=== PATIENT | female | born 1965 | race Two or more races ===

== ENCOUNTER 2016-09-29 14:37 | Inpatient (IN) | payer MEDICAID ==
[~2016-09-29] VITALS: Ht 157.5 cm; Wt 64.0 kg
--- NOTE | 2016-09-29 14:37 | NUR ---
BIBRA 81 FOR ALTERED, OPNQQ=401.3, UB=427TH/DL. PLACED PT ON MONITOR. AWAITING MD ORDER
--- NOTE | 2016-09-29 15:09 | NUR ---
HAND BOBBIN CLEANER AT BEDSIDE
[2016-09-29] MEDS ORDERED: METF10002 PO (15:25)
[2016-09-29 16:13] LABS: BASOPHILS # (AUTO) 0.1 /CMM (0.0-0.2); BASOPHILS % (AUTO) 0.6 % (0.0-2.0); HEMATOCRIT 31 % (33-45); HEMOGLOBIN 10.3 g/dL (11.5-14.8); LYMPHOCYTES # (AUTO) 0.2 /CMM (0.8-4.8); LYMPHOCYTES % (AUTO) 1.7 % (20.0-44.0); MEAN CORPUSCULAR HEMOGLOBIN 29 PG (26.0-33.0); MEAN CORPUSCULAR HGB CONC 33 g/dl (31.0-36.0); MEAN CORPUSCULAR VOLUME 86 fL (82-100); MONOCYTES # (AUTO) 0.1 /CMM (0.1-1.30); MONOCYTES % (AUTO) 0.5 % (2.0-12.0); NEUTROPHILS # (AUTO) 11.4 /CMM (1.8-8.9); NEUTROPHILS % (AUTO) 97.2 % (43.0-81.0); PLATELET COUNT (AUTO) 170 /CMM (150-450); RDW COEFFICIENT OF VARIATION 13.8 (11.5-15.0); RED BLOOD CELL COUNT(AUTO) 3.63 MIL/uL (4.0-5.2); WHITE BLOOD COUNT (AUTO) 11.8 K/uL (4.3-11.0)
[2016-09-29 16:17] LABS: INR 1.03 (0.87-1.13); PROTHROMBIN TIME 10.7 SECS (9.5-12.7)
[2016-09-29 16:20] LABS: ALANINE AMINOTRANSFERASE 20 U/L (12-78); ALBUMIN 2.5 g/dL (3.4-5.0); ALKALINE PHOSPHATASE 134 U/L (46-116); ASPARTATE AMINOTRANSFERASE 21 U/L (15-37); BILIRUBIN,DIRECT 0.1 mg/dL (0.0-0.2); BILIRUBIN,TOTAL 0.4 mg/dL (0.2-1.0); CALCIUM, SERUM 8.9 mg/dL (8.5-10.1); CARBON DIOXIDE 23 mmol/L (21-32); CHLORIDE 95 mmol/L (98-107); CREATININE 0.8 mg/dL (0.6-1.3); POTASSIUM 3.8 mmol/L (3.5-5.1); SODIUM SERUM 129 mmol/L (136-145); TOTAL PROTEIN, SERUM 6.6 g/dL (6.4-8.2); UREA NITROGEN, BLOOD 11 mg/dL (7-18)
[2016-09-29 16:22] LABS: GLUCOSE 435 mg/dL (74-106)
[2016-09-29 16:23] LABS: TROPONIN I < 0.017 ng/mL (0.00-0.056)
--- NOTE | 2016-09-29 16:31 | NUR ---
URINE SAMPLE COLLECTED SENT TO LAB
[2016-09-29 17:10] LABS: BILIRUBIN,URINE Negative (NEGATIVE); BLOOD, URINE Negative Ery/uL (NEGATIVE); COLOR,URINE Yellow (YELLOW); KETONES,URINE 15 (NEGATIVE); LEUKOCYTE ESTERASE ,URINE Negative (NEGATIVE); NITRITE, URINE Negative (NEGATIVE); PROTEIN,URINE Negative (NEGATIVE); UGLUCOSE 500 MG/DL mg/dL (NEGATIVE); UROBILINOGEN,URINE 0.2 EU/dL (0.2)
[2016-09-29 17:13] LABS: APPEARANCE,URINE SLIGHTLY HAZY (CLEAR)
[2016-09-29 17:18] LABS: BACTERIA,URINE None seen /HPF (None Seen); RBC,URINE 0-2 /HPF (0-2); SQUAMOUS EPITHELIAL CELL,UR Few /HPF (None Seen); WBC,URINE 0-2 /HPF (0-3)
--- NOTE | 2016-09-29 17:26 | NUR ---
GAVE REPORT TO CHELSI AMBROCIO TELE ROOM [address] GALDAMEZ
--- NOTE | 2016-09-29 18:07 | NUR ---
TRANSFERRED PT TO ROOM 108
[2016-09-29 18:23] VITALS: BP 103/50
--- NOTE | 2016-09-29 18:24 | NUR ---
RN NOTES ADMITTED A 51Y/O F FROM ER WITH DX OF SEPSIS TRANSPORTED VIA STRETCHER ACCOMPANIED BY RN. PT IS AWAKE ALERT ORIENTED TO IMMEDIATE SURROUNDINGS, SWEDISH SPEAKING ONLY. NO ACUTE DISTRESS NOTED. ON RA JIM WELL. DENIES PAIN/DISCOMFORT AT THIS TIME . BODY CHECK DONE, NO MAJOR SKIN ISSUES NOTED. PT DENIES ANY SKIN PROBLEMS. VS TAKEN AND RECORDED. PT AFEBRILE. TELEBOX ATTACHED NOTED ST ON THE MONITOR. ORIENTED TO UNIT AND CALL LIGHT USE, SAFETY MAINTAINED, NEEDS ATTENDED. CALL LIGHT WITHIN REACH, WILL CONT TO MONITOR
[2016-09-29 20:00] VITALS: BP 94/54
[2016-09-29 20:30] VITALS: BP 94/54
--- NOTE | 2016-09-29 20:30 | NUR ---
NEUROSURGICAL NURSE NOTE RECEIVED PT IN BED A/O X 3, [place] SPEAKING. NO SOB, NO DISTRESS OR DISCOMFORT NOTED. DENIES PAIN. H/L IN RAC # [address]ENT[address] GALDAMEZ GAVE ADMITTING ORDERS, ORDERS NOTED AND CARRIED OUT. ON TELE ST HR 103. SKIN INTACT. ALL NEEDS ATTENDED. SIDE RAILS UP X 2 AND CALL LIGHT WITHIN REACH. PT AMBULATED WITH STEADY GAIT. VSS. CONTINUE TO MONITOR HER.
[2016-09-29 21:24] LABS: IRON, SERUM 54 ug/dl (50-175); TOTAL IRON BINDING CAPACITY 224 ug/dl (250-450)
--- NOTE | 2016-09-29 21:35 | NUR ---
FAVIAN AMBROCIO NOTE TYSON SOLANO INFORMED PT LACTIC ACID 2.8 AND PROCALCITONIN 39.56 Addendum: 09/29/16 at 2139 by WILMAN ARNOLD RN RUSS GAVE NEW ORDER TO INCREASE IVF NS TO 100 ML/HR.
[2016-09-30] VITALS: BP 91/52
[2016-09-30 04:00] VITALS: BP 97/59
[2016-09-30 06:34] LABS: BASOPHILS % (AUTO) 0.2 % (0.0-2.0); HEMATOCRIT 32 % (33-45); HEMOGLOBIN 10.5 g/dL (11.5-14.8); LYMPHOCYTES # (AUTO) 1.7 /CMM (0.8-4.8); LYMPHOCYTES % (AUTO) 10.3 % (20.0-44.0); MEAN CORPUSCULAR HEMOGLOBIN 28 PG (26.0-33.0); MEAN CORPUSCULAR HGB CONC 33 g/dl (31.0-36.0); MEAN CORPUSCULAR VOLUME 86 fL (82-100); MONOCYTES # (AUTO) 0.3 /CMM (0.1-1.30); MONOCYTES % (AUTO) 1.9 % (2.0-12.0); NEUTROPHILS # (AUTO) 14.7 /CMM (1.8-8.9); NEUTROPHILS % (AUTO) 87.6 % (43.0-81.0); PLATELET COUNT (AUTO) 147 /CMM (150-450); RDW COEFFICIENT OF VARIATION 14.7 (11.5-15.0); RED BLOOD CELL COUNT(AUTO) 3.73 MIL/uL (4.0-5.2); WHITE BLOOD COUNT (AUTO) 16.8 K/uL (4.3-11.0)
--- NOTE | 2016-09-30 06:38 | NUR ---
DRIVER'S EDUCATION INSTRUCTOR NOTE PT IN BED ASLEEP, AROUSABLE. NO DISTRESS OR DISCOMFORT NOTED. DENIES PAIN. IVF INFUSING WELL, NO S/S OF INFILTRATION NOTED. ON TELE SR 77. SIDE RAILS UP X 2 AND CALL LIGHT WITHIN REACH. WILL ENDORSE TO DAY SHIFT NURSE FOR CONTINUE TO CARE.
[2016-09-30 06:51] LABS: INR 1.02 (0.87-1.13); PROTHROMBIN TIME 10.9 SECS (9.5-12.7)
[2016-09-30 07:19] LABS: ALBUMIN 2.5 g/dL (3.4-5.0); BILIRUBIN,TOTAL 0.4 mg/dL (0.2-1.0); CALCIUM, SERUM 8.7 mg/dL (8.5-10.1); CREATININE 0.6 mg/dL (0.6-1.3); TOTAL PROTEIN, SERUM 6.8 g/dL (6.4-8.2)
--- NOTE | 2016-09-30 07:54 | NUR ---
TELE1/RN AM SHIFT INITIAL NOTES RECEIVED PT ASLEEP IN BED, AROUSEABLE, PT A/O X 4 SWEDISH SPEAKING, NO ACUTE CHANGE OF CONDITION OR FEVER, DENIES PAIN. ON ROOM AIR SATURATING @ 99%, LUNG SOUNDS CLEAR. ON TELE MONITORING, NOTED WITH SINUS RHYTHM, HR 76. ON GOING IV INFUSION OF NS @ 100CC/HR, IV SITE PATENT WITH NO S/S OF INFECTION. PT IS COMFORTABLE AT THIS TIME. CL WITHIN REACHED AND SAFETY MAINTAINED. ON GOING MONITORING.
[2016-09-30 08:00] VITALS: BP 104/54
[2016-09-30 08:05] LABS: BAND % (MANUAL) 15 % (0.0-5.0); LYMPHOCYTES % (MANUAL) 9 % (16-48); MONOCYTES % (MANUAL) 4 % (0-11.0); NEUTROPHILS % (MANUAL) 72 (42-76)
--- NOTE | 2016-09-30 11:36 | NUR ---
MS1/RN ROUNDS - DR. ZAMAN UPDATED PT'S CONDITION. PT SEEN & EXAMINED BY DR. ZAMAN. WITH VERBAL ORDERS RECEIVED TO START PT ON ACYCLOVIR 50MG DAILY PER PT'S REQUEST FOR HERPES AND DVT PROPHYLAXIS SCDs. ORDER NOTED AND CARRIED OUT.
--- NOTE | 2016-09-30 15:42 | NUR ---
MS1/RN AFTERNOON ROUNDS NO CHANGE OF CONDITION. MONITORING CONTINUED.
[2016-09-30 16:00] VITALS: BP 111/64
--- NOTE | 2016-09-30 19:25 | NUR ---
RN OPEN NOTES RECEIVED PATIENT AWAKE IN BED. A/O X4. NO SIGNS OF DISTRESS OR DISCOMFORT. BREATHING EVEN AND UNLABORED. IV ACCESS IN RAC, PATENT AND INTACT, NO SIGNS OF REDNESS OR INFILTRATION. BED IN LOW LOCKED POSITION WITH SIDE RAILS X2. CALL LIGHT WITHIN REACH. WILL CONTINUE TO MONITOR.
--- NOTE | 2016-09-30 19:46 | NUR ---
MS1/RN AM SHIFT END NOTES ALL NEEDS MET. NO ACUTE CHANGE OF CONDITION NOTED DURING THE SHIFT. PT ENDORSED TO PM NURSE TO CONTINUE CARE. CL WITHIN REACHED AND SAFETY MAINTAINED.
[2016-09-30 20:00] VITALS: BP 123/64
--- NOTE | 2016-09-30 20:05 | NUR ---
RN NOTES RECEIVED BLOOD CX RESULTS: GRAM POSITIVE COCCI IN CHAINS- ANAEROBIC TUBE, PER LAB. WILL INFORM MD AND CONTINUE TO MONITOR
--- NOTE | 2016-09-30 20:27 | NUR ---
RN NOTES DR. HOANG AWARE OF BLOOD CX RESULTS. NO NEW ORDERS GIVEN. WILL CONTINUE TO MONITOR.
[2016-10-01 04:00] VITALS: BP 122/60
--- NOTE | 2016-10-01 06:49 | NUR ---
RN CLOSING NOTES PATIENT AWAKE IN BED. A/O X4. NO SIGNS OF DISTRESS OR DISCOMFORT. BREATHING EVEN AND UNLABORED. IV ACCESS IN RAC, PATENT AND INTACT, NO SIGNS OF REDNESS OR INFILTRATION. ALL NEEDS MET. NO SIGNIFICANT CHANGES THROUGH THE NIGHT. BED IN LOW LOCKED POSITION WITH SIDE RAILS X2. CALL LIGHT WITHIN REACH. WILL ENDORSE TO AM SHIFT FOR COLLEEN.
[2016-10-01 08:00] VITALS: BP 132/68
--- NOTE | 2016-10-01 08:00 | NUR ---
RN INITIAL NOTES PT IS IN BED, A/Ox4, POLISH SPEAKING, NO COMPLAINTS OF PAIN. AFEBRILE, ROOM AIR, SATURATING WELL, NO RESPIRATORY DISTRESS NOTED. . AMBULATORY - BRP, SKIN INTACT, ON CCHO DIET. RAC IS FLUSHED AND PATENT, ON SL. WILL CONTINUE WITH ATB. ENCOURAGE PT WITH SELF CARE. SIDE RAIL UP, BED LOCKED AND IN LOWEST POSITION. CALL LIGHT WITHIN REACH.
[2016-10-01 08:10] LABS: *WEST NILE VIRUS, IgG, SERUM Positive (Negative)
[2016-10-01 10:21] LABS: *WEST NILE VIRUS, IgM, SERUM Negative (Negative)
--- NOTE | 2016-10-01 14:25 | NUR ---
PAGED DR ZAMAN TO REPORT CT SCAN RESULT AND BLOOD CULTURE TEST RESULT.
--- NOTE | 2016-10-01 15:02 | NUR ---
RECEIVED ORDER FROM DR ZAMAN, TO START [facility] TO DOSE 1MG/1KG, PT IS ASYMPTOMATIC, SITTING UP IN BED RESTING. PAGED DR MELÉNDEZ TO REGARDING BLOOD CX RESULT.
[2016-10-01 15:40] LABS: BASOPHILS % (AUTO) 0.1 % (0.0-2.0); EOSINOPHILS % (AUTO) 0.1 % (0.0-6.0); HEMATOCRIT 28 % (33-45); HEMOGLOBIN 9.2 g/dL (11.5-14.8); LYMPHOCYTES % (AUTO) 13.2 % (20.0-44.0); MEAN CORPUSCULAR HEMOGLOBIN 28 PG (26.0-33.0); MEAN CORPUSCULAR HGB CONC 33 g/dl (31.0-36.0); MEAN CORPUSCULAR VOLUME 86 fL (82-100); MONOCYTES # (AUTO) 0.3 /CMM (0.1-1.30); MONOCYTES % (AUTO) 3.7 % (2.0-12.0); NEUTROPHILS # (AUTO) 6.2 /CMM (1.8-8.9); NEUTROPHILS % (AUTO) 82.9 % (43.0-81.0); PLATELET COUNT (AUTO) 220 /CMM (150-450); RDW COEFFICIENT OF VARIATION 14.4 (11.5-15.0); RED BLOOD CELL COUNT(AUTO) 3.26 MIL/uL (4.0-5.2); WHITE BLOOD COUNT (AUTO) 7.5 K/uL (4.3-11.0)
[2016-10-01 15:56] LABS: CREATININE 0.5 mg/dL (0.6-1.3); POTASSIUM 3.8 mmol/L (3.5-5.1)
[2016-10-01 16:00] VITALS: BP 118/63
--- NOTE | 2016-10-01 18:31 | NUR ---
RN CLOSING NOTES NO SIGNIFICANT CHANGE OF CONDITION DURING AM SHIFT. PT STARTED ON LOVEN[facility], CT SCAN WITH CONTRAST RESULTED WITH POSSIBLE PE, PT IS ASYMPTOMATIC, NO RESPIRATORY DISTRESS NOTED. NO COMPLAINTS OF PAIN. CONTINUE ATB TX. AFEBRILE, ALL MEDS GIVEN ORDERED, PT TOLERATED IT WELL. [place] NO S/SX OF INFECTION/INFILTRATION. ALL SAFETY MEASURES MET, CALL LIGHTS WITHIN REACH WITH ENDORSED TO PM NURSE FOR CONTINUATION OF CARE.
--- NOTE | 2016-10-01 19:30 | NUR ---
RN NOTES RECEIVED PT AWAKE ALERT ORIENTED X 3 ABLE TO MAKE KNOWN NEEDS IN SOMALI LANGUAGE. RA SATING 98% NO C/O SOB.PT AMBULATE WELL. DENIES PAIN. IV SITE ON RAC G 20 NOTED WITH INFILTRATION SHOWS. REMOVED AND PLACED A NEW SITE ON LEFT HAND G 22 WITH GOOD BLOOD RETURN. WILL CONTINUE TO MONITOR FOR ANY S/SX. OF PE. WILL MONITORED CLOSELY.
[2016-10-01 20:00] VITALS: BP 119/60
[2016-10-02 04:00] VITALS: BP 125/68
--- NOTE | 2016-10-02 07:10 | NUR ---
RN NOTES REMAINED IN STABLE CONDITION. NO SIGNIFICANT CHANGES NOTED. AFEBRILE THROUGHOUT THE SHIFT. NO SOB NO S/S OF PE. ALL DUE MEDICINE TOLERATED WELL. ENDORSED CONTINUITY OF CARE TO AM NURSE.
[2016-10-02 08:00] VITALS: BP 132/69
[2016-10-02 09:36] LABS: CALCIUM, SERUM 8.6 mg/dL (8.5-10.1); CREATININE 0.5 mg/dL (0.6-1.3); POTASSIUM 3.8 mmol/L (3.5-5.1)
[2016-10-02 16:00] VITALS: BP 134/68
--- NOTE | 2016-10-02 17:55 | NUR ---
RN NOTE PT BLOOD SUGAR 413 MG/DL, COVERED BY 10 UNITS OF REGULAR INSULIN PER SLIDING SCALE. PT HAD A BIG MEAL BROUGHT IN BY A FRIEND VISITING HER ABOUT HOUR PRIOR BG CHECK. SINCE DR ZAMAN WAS NOT AVAILABLE, SPOKE WITH BRENDA CENTENO NP, HE STATED TO CHECK BG 1 HOUR AFTER AND FOLLOW UP WITH PRIMARY DOCTOR TO ADJUST SLIDING SCALE INSULIN. WILL CONTINUE TO MONITOR PT.
[2016-10-02 20:00] VITALS: BP 107/57
[2016-10-03 04:00] VITALS: BP 135/60
--- NOTE | 2016-10-03 07:36 | NUR ---
RN INITIAL NOTES PT IS IN SITTING UP IN CHAIR, A/Ox4, [place] SPEAKING, NO COMPLAINTS OF PAIN, AFEBRILE. NO RESPIRATORY DISTRESS NOTED, ON ROOM AIR, SATURATING WELL, NO RESPIRATORY DISTRESS NOTED. AD LOREN WITH BRP, SKIN INTACT, ON CCHO DIET WITH ACCU CHECK ACHS. LEFT HAND #22 IS FLUSHED AND PATENT, ON SL. ENCOURAGE PT WITH SELF CARE. SIDE RAIL UP, BED LOCKED AND IN LOWEST POSITION. CALL LIGHT WITHIN REACH
[2016-10-03 08:00] VITALS: BP 124/74
[2016-10-03 08:08] LABS: CALCIUM, SERUM 8.6 mg/dL (8.5-10.1); CREATININE 0.6 mg/dL (0.6-1.3); POTASSIUM 4.1 mmol/L (3.5-5.1)
[2016-10-03 16:00] VITALS: BP 141/60
--- NOTE | 2016-10-03 18:49 | NUR ---
RN CLOSING NOTES NO SIGNIFICANT CHANGES DURING AM SHIFT. COLLECTED URINE SAMPLE FOR URINE CULTURE. NO FEVER, NO S/S OF RESPIRATORY DISTRESS NOTED. PT IS INDEPENDENT AD LOREN, ENCOURAGE PT OF SELF CARE. L HAND IV SITE IS PATENT, NO S/SX OF INFECTION/INFILTRATION. SKIN INTACT, PULMO CONSULT DONE WITH DR DUMONT. WILL DO LE VENOUS DOPPLER, AND VASU LEVEL. ALL MEDS GIVEN ORDERED, PT TOLERATED IT WELL. WILL ENDORSED TO PM NURSE FOR CONTINUATION OF CARE.
[2016-10-03 20:00] VITALS: BP_SYST 128; BP_DIAS 68; BP_DIAS 70
--- NOTE | 2016-10-03 20:00 | NUR ---
ms rn notes received pts on bed a/ox4 tunisian speaking , no sob no distress noted v/s stable afebrile, all needs attended too all due meds given as ordered call light within reach , kept pts clean dry and comfortable.
--- NOTE | 2016-10-03 21:53 | NUR ---
ms rn notes blood sugar for 10pm is 312mg/dl -8 units of regular insulin . given per sliding scale pts on po diet. will check blood sugar again in am.
[2016-10-04 04:00] VITALS: BP 128/68
[2016-10-04 06:43] LABS: EOSINOPHILS % (AUTO) 0.1 % (0.0-6.0); HEMATOCRIT 31 % (33-45); HEMOGLOBIN 10.2 g/dL (11.5-14.8); LYMPHOCYTES # (AUTO) 1.4 /CMM (0.8-4.8); LYMPHOCYTES % (AUTO) 19.3 % (20.0-44.0); MEAN CORPUSCULAR HEMOGLOBIN 29 PG (26.0-33.0); MEAN CORPUSCULAR HGB CONC 33 g/dl (31.0-36.0); MEAN CORPUSCULAR VOLUME 87 fL (82-100); MONOCYTES # (AUTO) 0.4 /CMM (0.1-1.30); MONOCYTES % (AUTO) 4.9 % (2.0-12.0); NEUTROPHILS # (AUTO) 5.7 /CMM (1.8-8.9); NEUTROPHILS % (AUTO) 75.7 % (43.0-81.0); PLATELET COUNT (AUTO) 329 /CMM (150-450); RDW COEFFICIENT OF VARIATION 14.7 (11.5-15.0); RED BLOOD CELL COUNT(AUTO) 3.54 MIL/uL (4.0-5.2); WHITE BLOOD COUNT (AUTO) 7.5 K/uL (4.3-11.0)
[2016-10-04 07:04] LABS: CALCIUM, SERUM 8.8 mg/dL (8.5-10.1); CREATININE 0.5 mg/dL (0.6-1.3); POTASSIUM 4.3 mmol/L (3.5-5.1)
--- NOTE | 2016-10-04 07:15 | NUR ---
RN INITIAL NOTES: REC'D PT AWAKE ON SITTING ON BEDSIDE CHAIR, NOT IN ANY FORM OF DISTRESS, A/O X4, DENIES ANY PAIN/ DISCOMFORT, ABLE TO MAKE NEEDS KNOWN, EMIRATI SPEAKING. HAS L HAND G22, SL, FLUSHED, PATENT & INTACT W/ NO S/SX OF INFECTION/ INFILTRATION. PROVIDED COMFORT & SAFETY MEASURES. BED KEPT LOW & IN LOCKED POS. WILL CONTINUE TO MONITOR.
[2016-10-04 08:00] VITALS: BP 134/72
--- NOTE | 2016-10-04 12:30 | NUR ---
RN NOTES: PT SEEN & EXAMINED BY DR. LINARES.
[2016-10-04 16:00] VITALS: BP 120/54
--- NOTE | 2016-10-04 18:38 | NUR ---
RN CLOSING NOTES: NO ACUTE CHANGES NOTED W/IN SHIFT. L HAND G22, SL, KEPT PATENT & INTACT W/ NO S/SX OF INFECTION/ INFILTRATION. KEPT WELL RESTED. NEEDS ATTENDED. CALL LIGHT PLACED W/IN REACH. BED KEPT LOW & IN LOCKED POS. WILL ENDORSE TO PM RN FOR COLLEEN.
[2016-10-04 20:00] VITALS: BP 115/59
[2016-10-05 04:00] VITALS: BP 125/65
[2016-10-05 06:23] LABS: BASOPHILS % (AUTO) 0.4 % (0.0-2.0); EOSINOPHILS % (AUTO) 0.3 % (0.0-6.0); HEMATOCRIT 33 % (33-45); HEMOGLOBIN 10.8 g/dL (11.5-14.8); LYMPHOCYTES # (AUTO) 1.2 /CMM (0.8-4.8); LYMPHOCYTES % (AUTO) 19.1 % (20.0-44.0); MEAN CORPUSCULAR HEMOGLOBIN 29 PG (26.0-33.0); MEAN CORPUSCULAR HGB CONC 33 g/dl (31.0-36.0); MEAN CORPUSCULAR VOLUME 87 fL (82-100); MONOCYTES # (AUTO) 0.3 /CMM (0.1-1.30); MONOCYTES % (AUTO) 5.3 % (2.0-12.0); NEUTROPHILS # (AUTO) 4.7 /CMM (1.8-8.9); NEUTROPHILS % (AUTO) 74.9 % (43.0-81.0); PLATELET COUNT (AUTO) 327 /CMM (150-450); RED BLOOD CELL COUNT(AUTO) 3.79 MIL/uL (4.0-5.2); WHITE BLOOD COUNT (AUTO) 6.3 K/uL (4.3-11.0)
[2016-10-05 06:41] LABS: CALCIUM, SERUM 9.2 mg/dL (8.5-10.1); CREATININE 0.5 mg/dL (0.6-1.3); POTASSIUM 4.6 mmol/L (3.5-5.1)
[2016-10-05 08:00] VITALS: BP 106/59
--- NOTE | 2016-10-05 08:00 | NUR ---
MS1/RN AM SHIFT INITIAL NOTE RECEIVED PT SITTING AWAKE IN BED. PT A/O X 4, DENIES ANY SYMPTOMS OR PAIN. NO ACUTE CHANGE OF CONDITION NOTED. PT ON ROOM AIR SATURATING WELL. IV SITE FLUSHED, PATENT WITH NO S/S OF INFECTION, SL. BS CHECKED, RESULT 318, TO BE GIVEN 8 UNITS OF REGULAR INSULIN SC, NO S/S OF HYPERGLYCEMIA. PT IS COMFORTABLE AT THIS TIME. SCHEDULED AM MEDS TO BE GIVEN. CL WITHIN REACHED AND SAFETY MAINTAINED. ON GOING MONITORING.
[2016-10-05 09:55] VITALS: BP 106/59
--- NOTE | 2016-10-05 12:00 | NUR ---
MS1/RN NOON ROUNDS NO CHANGE OF CONDITION. MONITORING CONTINUED.
[2016-10-05 16:00] VITALS: BP 100/60
--- NOTE | 2016-10-05 17:30 | NUR ---
MS1/RN AFTERNOON ROUNDS NO CHANGE OF CONDITION. MONITORING CONTINUED.
--- NOTE | 2016-10-05 19:35 | NUR ---
MS1/RN AM SHIFT END NOTES NO ACUTE CHANGE OF CONDITION NOTED DURING THE SHIFT. ALL NEEDS MET. PT ENDORSED TO PM NURSE TO CONTINUE CARE. CL WITHIN REACHED, SAFETY MAINTAINED AND ISOLATION OBSERVED.
[2016-10-05 20:00] VITALS: BP 134/61
--- NOTE | 2016-10-06 02:42 | NUR ---
RN MS NOTE TOOK OVER CARE OF PT FROM LOLLY CASTANO. PT RECEIVED IN NO ACUTE DISTRESS. WILL CONTINUE TO ENSURE SAFETY/COMFORT MEASURES AND MONITOR FOR ANY CHANGES.
[2016-10-06 04:00] VITALS: BP 114/62
[2016-10-06 06:50] LABS: CALCIUM, SERUM 9.3 mg/dL (8.5-10.1); CREATININE 0.5 mg/dL (0.6-1.3); POTASSIUM 4.1 mmol/L (3.5-5.1)
--- NOTE | 2016-10-06 07:30 | NUR ---
MS/RN: PT RECEIVED, EYES CLOSED, IN BED, A&OX4, BREATHING EVEN AND UNLABORED, NO DISTRESS NOTED. DENIES PAIN AND DISCOMFORT. REAPPLIED DVT PUMP, EDUCATED PT ON POC. WILL CONT TO MONITOR PT
[2016-10-06 07:42] LABS: BASOPHILS % (AUTO) 0.2 % (0.0-2.0); EOSINOPHILS % (AUTO) 0.1 % (0.0-6.0); HEMATOCRIT 33 % (33-45); HEMOGLOBIN 10.9 g/dL (11.5-14.8); LYMPHOCYTES # (AUTO) 1.6 /CMM (0.8-4.8); LYMPHOCYTES % (AUTO) 25.5 % (20.0-44.0); MEAN CORPUSCULAR HEMOGLOBIN 28 PG (26.0-33.0); MEAN CORPUSCULAR HGB CONC 33 g/dl (31.0-36.0); MEAN CORPUSCULAR VOLUME 86 fL (82-100); MONOCYTES # (AUTO) 0.3 /CMM (0.1-1.30); NEUTROPHILS # (AUTO) 4.3 /CMM (1.8-8.9); NEUTROPHILS % (AUTO) 69.2 % (43.0-81.0); PLATELET COUNT (AUTO) 302 /CMM (150-450); RED BLOOD CELL COUNT(AUTO) 3.87 MIL/uL (4.0-5.2); WHITE BLOOD COUNT (AUTO) 6.3 K/uL (4.3-11.0)
[2016-10-06 08:00] VITALS: BP 107/79
--- NOTE | 2016-10-06 09:00 | NUR ---
MS/RN: DR RAMIREZ ROUNDS; INFORMED OF SUSPECTED SEPTIC EMBOLI VS SBE, ID RECOMMENDATIONS FOR REPEAT ECHO VS BRIDGER. PER MD "YES, I WAS INFORMED, I WILL TAKE A LOOK AT HER CHART."
[2016-10-06 16:00] VITALS: BP 140/64
--- NOTE | 2016-10-06 19:25 | NUR ---
RN MS OPENING NOTE PT RECEIVED IN NO ACUTE DISTRESS. PT IS A/O X4 BHUTANESE SPEAKING ON RA WITH ADEQUATE 02 SATURATION. PT HAS A RIGHT HAND 22 G THAT IS CLEAN DRY AND PATENT. PT IS ABLE TO WALK TO THE BATHROOM AND HAS FAMILY MEMBER AT BEDSIDE. COMFORT AND SAFETY MEASURES TO BE ENSURED DURING THE SHIFT. WILL CONTINUE TO MONITOR FOR CHANGES.
[2016-10-06 20:00] VITALS: BP 127/60
[2016-10-07 04:00] VITALS: BP 126/69
--- NOTE | 2016-10-07 06:13 | NUR ---
RN MS CLOSING NOTE PT REMAINS IN NO ACUTE DISTRESS SLEEPING COMFORTABLY. PT COMPLAINED OF CHEST PAIN EARLY IN SHIFT AND RECEIVED MORPHINE IVP. ALL DUE MEDICATIONS TOLERATED WELL. COMFORT AND SAFETY MEASURES WERE ENSURED DURING THE SHIFT. WILL ENDORSE CARE TO AM NURSE.
[2016-10-07 06:40] LABS: CREATININE 0.5 mg/dL (0.6-1.3)
[2016-10-07 06:59] LABS: POTASSIUM 4.2 mmol/L (3.5-5.1)
--- NOTE | 2016-10-07 07:50 | NUR ---
MS RN NOTE PT RECEIVED IN NO ACUTE DISTRESS. PT IS A/O X4 GREENLANDIC SPEAKING ON RA WITH ADEQUATE 02 SATURATION. PT HAS A RIGHT HAND 22 G THAT IS CLEAN DRY AND PATENT. PT IS ABLE TO WALK TO THE BATHROOM AND HAS FAMILY AT BEDSIDE. COMFORT AND SAFETY MEASURES TO BE ENSURED DURING THE SHIFT. WILL CONTINUE TO MONITOR FOR CHANGES. NO SOB NOTED , BED IN LOWEST AND LOCKED POSITION , PLAN OF CARE DISCUSSED WITH PATIENT , CALL LIGHT WITHIN REACH
[2016-10-07 08:00] VITALS: BP 110/64
--- NOTE | 2016-10-07 12:47 | NUR ---
ms rn note per dr joe dougherty to insert mid line , john ji at bedside inserted nyla 18 mid line on rt upper arm
--- NOTE | 2016-10-07 15:29 | NUR ---
MS RN NOTE ADWOA RADIOLOGIST CHIEF OF BREAST IMAGING AWARE THAT PATIENT NEED HOME HEALTH TO DO IV ATB AT HOME , STILL WORKING ON CASE , PATIENT NOTIFIED
[2016-10-07 16:00] VITALS: BP 132/55
--- NOTE | 2016-10-07 17:56 | NUR ---
MS RN NOTE PER IMPLEMENTATION ANALYST [place] TO DO LAST DOSE TODAY OF ATB AT 1999 AND DISCHARGE HOME TODAY ASSISTED HOME HEALTH [phone] WILL DO IV ATB , ALSO [facility] WILL BRING MEDS TOMORROW
--- NOTE | 2016-10-07 18:38 | NUR ---
POOLING OPERATOR NOTE PATIENT WILL BE DISCHARGE HOME AFTER 1999
--- NOTE | 2016-10-07 19:15 | NUR ---
MS 1 RN NOTES RECEIVED RESTING COMFORTABLY ON BED,A/O 3-4,AWAITING FOR IV ABX TO INFUSED THEN WILL D/C TO HOME.ALL PAPER WORKS ALREADY SIGNED.CALL LIGHT IN REACH,NEEDS ANTICIPATED.
[2016-10-07 20:00] VITALS: BP 123/61
--- NOTE | 2016-10-07 20:15 | NUR ---
MS 1 RN NOTES DUE ROCEPHIN 1GM IVPB HUNG AND INFUSED,NO ADVERSE SIDE EFFECT NOTED
--- NOTE | 2016-10-07 20:38 | NUR ---
MS 1 RN NOTES DISCHARGE INSTRUCTION GIVEN WITH BALLAST CLEANING OPERATOR,UNDERSTAND DISCHARGE INSTRUCTION.ACCOMPANIED BY FRIEND TO HOME WITH OWN TRANSPORTATION,MID LINE KEPT ON FOR HOME IV ABX.IN STABLE CONDITION
--- NOTE | 2016-10-07 20:45 | NUR ---
MS1 RN NOTES D/C HOME ACCOMPANIED BY FRIEND NAME CORTNEY CAVAZOS,IN STABLE CONDITION.
== END 2016-10-07 20:45 | disposition home health service (06) | DRG 193 ==
LOC: ER 14:40 → TELE1 17:31 → MEDSG1 09-30 10:57
PROVIDERS: ADMIT Internal Medicine; ATTEND Internal Medicine
PROC: 05H533Z Insertion of Infusion Device into Right Subclavian Vein, Percutaneous Approach (ICD-10-PCS; principal; 2016-10-07)
DX: I33.0 Acute and subacute infective endocarditis (principal); I26.99 Other pulmonary embolism without acute cor pulmonale; G92 Toxic encephalopathy; J90 Pleural effusion, not elsewhere classified; R78.81 Bacteremia; E11.65 Type 2 diabetes mellitus with hyperglycemia; I10 Essential (primary) hypertension; E78.5 Hyperlipidemia, unspecified; D63.8 Anemia in other chronic diseases classified elsewhere; K52.9 Noninfective gastroenteritis and colitis, unspecified; B00.1 Herpesviral vesicular dermatitis; A60.1 Herpesviral infection of perianal skin and rectum; N39.0 Urinary tract infection, site not specified; I27.2 Other secondary pulmonary hypertension; R59.0 Localized enlarged lymph nodes; B95.4 Other streptococcus as the cause of diseases classified elsewhere; R91.8 Other nonspecific abnormal finding of lung field; K57.30 Diverticulosis of large intestine without perforation or abscess without bleeding
CPT/HCPCS: 36415; 36569; 71010-TC; 71260-TC; 80048-TC; 80053-TC; 80076-TC; 81000-TC; 82272-TC; 82553-TC; 82962-TC; 83540-TC; 83605-TC; 84484-TC; 85025-TC; 85610-TC; 85730-TC; 86788; 86789; 87040-TC; 87081-TC; 87086-TC; 87186-TC; 93307-TC; 93970-TC; A4606; A6402; J0696; J1650; J1815; J2270; J2543; J3370; J7030; J7050; J7060; Q9967; Z7610

== ENCOUNTER 2016-10-23 22:16 | Emergency (ER) | payer MEDICAID ==
[~2016-10-23] VITALS: Ht 162.6 cm; Wt 74.8 kg
[~2016-10-23 22:16] MED LIST: METF10002 PO
[2016-10-23 22:53] VITALS: BP 165/78
[2016-10-23 22:55] LABS: APPEARANCE,URINE CLEAR (CLEAR); BILIRUBIN,URINE NEGATIVE (NEGATIVE); BLOOD, URINE NEGATIVE Ery/uL (NEGATIVE); COLOR,URINE YELLOW (YELLOW); KETONES,URINE NEGATIVE (NEGATIVE); LEUKOCYTE ESTERASE ,URINE NEGATIVE (NEGATIVE); NITRITE, URINE NEGATIVE (NEGATIVE); PH,URINE 6.5 (5.0-8.0); PROTEIN,URINE NEGATIVE (NEGATIVE); UGLUCOSE 3+ mg/dL (NEGATIVE); UROBILINOGEN,URINE 0.2 EU/dL (0.2)
[2016-10-23 23:15] LABS: BACTERIA,URINE Rare /HPF (None Seen); PREGNANCY TEST URINE QUAL NEGATIVE (NEGATIVE); RBC,URINE NONE SEEN /HPF (0-2); SQUAMOUS EPITHELIAL CELL,UR Moderate /HPF (None Seen); WBC,URINE 0-2 /HPF (0-3); YEAST,URINE Moderate /HPF (None Seen)
--- NOTE | 2016-10-24 00:30 | NUR ---
infused rocephin 1g to picc line via ivpb. no adr noted. vss.
== END 2016-10-24 00:32 | disposition home or self-care (01) ==
LOC: ER 22:18
DX: R31.9 Hematuria, unspecified (principal); I10 Essential (primary) hypertension; Z79.2 Long term (current) use of antibiotics; E11.9 Type 2 diabetes mellitus without complications
CPT/HCPCS: 81001; 82962; 84703; 87086; 96365; 99284; A4606; J0696; J7060; Z7610; 81000-TC

== ENCOUNTER 2016-10-30 19:54 | Emergency (ER) | payer MEDICAID ==
[~2016-10-30] VITALS: Ht 162.6 cm; Wt 68.0 kg
[2016-10-30 20:47] VITALS: BP 147/88
== END 2016-10-30 21:24 | disposition left against medical advice (07) ==
LOC: ER 20:03
DX: Z53.21 Procedure and treatment not carried out due to patient leaving prior to being seen by health care provider (principal)
CPT/HCPCS: A4606; Z7610

== ENCOUNTER 2016-12-29 12:05 | Emergency (ER) | payer SELFPAY ==
[~2016-12-29] VITALS: Ht 167.6 cm; Wt 65.8 kg
[2016-12-29 12:36] VITALS: BP 160/70
--- NOTE | 2016-12-29 12:36 | NUR ---
PELVIC EXAM DONE BY MD BIRD,. NO CONDOM FOUND INSIDE
--- NOTE | 2016-12-29 12:37 | NUR ---
Patient discharged to home in stable condition. Written and verbal after care instructions given. Patient verbalizes understanding of instruction.
== END 2016-12-29 12:43 | disposition home or self-care (01) ==
LOC: ER 12:07
DX: T19.2XXA Foreign body in vulva and vagina, initial encounter (principal); E11.9 Type 2 diabetes mellitus without complications; I10 Essential (primary) hypertension; X58.XXXA Exposure to other specified factors, initial encounter; Y93.89 Activity, other specified; Y92.89 Other specified places as the place of occurrence of the external cause; Y99.8 Other external cause status
CPT/HCPCS: 99283; A4606; Z7610

== ENCOUNTER 2017-02-07 15:39 | Emergency (ER) | payer SELFPAY ==
[~2017-02-07] VITALS: Ht 170.2 cm; Wt 72.6 kg
[2017-02-07 15:39] VITALS: BP 171/75
--- NOTE | 2017-02-07 16:17 | NUR ---
pt stable condition no available beds
[2017-02-07 17:37] LABS: APPEARANCE,URINE Cloudy (CLEAR); BILIRUBIN,URINE Negative (NEGATIVE); BLOOD, URINE Trace-intact Ery/uL (NEGATIVE); COLOR,URINE Dark (YELLOW); KETONES,URINE Trace (NEGATIVE); LEUKOCYTE ESTERASE ,URINE Small (NEGATIVE); NITRITE, URINE Positive (NEGATIVE); PH,URINE 6.5 (5.0-8.0); PROTEIN,URINE Trace mg/dl (NEGATIVE); UGLUCOSE 500 MG/DL mg/dL (NEGATIVE)
[2017-02-07 18:17] LABS: BACTERIA,URINE Many /HPF (None Seen); SQUAMOUS EPITHELIAL CELL,UR Many /HPF (None Seen)
== END 2017-02-07 18:01 | disposition home or self-care (01) ==
LOC: ER 15:43
DX: N39.0 Urinary tract infection, site not specified (principal); E11.9 Type 2 diabetes mellitus without complications; I10 Essential (primary) hypertension; F10.10 Alcohol abuse, uncomplicated
CPT/HCPCS: 81001; 84703; 87077; 87086; 87186; 99284; A4606; Z7610; 81000-TC

== ENCOUNTER → 2017-03-23 | Emergency (ER) | payer SELFPAY ==
[~2017-03-23] VITALS: Ht 165.1 cm; Wt 63.5 kg
[2017-03-23 11:03] VITALS: BP 151/91
[2017-03-23 11:34] LABS: APPEARANCE,URINE CLOUDY (CLEAR); BILIRUBIN,URINE NEGATIVE (NEGATIVE); BLOOD, URINE 1+ Ery/uL (NEGATIVE); COLOR,URINE YELLOW (YELLOW); KETONES,URINE NEGATIVE (NEGATIVE); LEUKOCYTE ESTERASE ,URINE 1+ (NEGATIVE); NITRITE, URINE POSITIVE (NEGATIVE); PROTEIN,URINE 1+ mg/dl (NEGATIVE); UGLUCOSE 3+ mg/dL (NEGATIVE); UROBILINOGEN,URINE 0.2 EU/dL (0.2)
[2017-03-23 11:42] LABS: BASOPHILS % (AUTO) 0.1 % (0.0-2.0); EOSINOPHILS % (AUTO) 0.5 % (0.0-6.0); HEMATOCRIT 37 % (33-45); HEMOGLOBIN 12.7 g/dL (11.5-14.8); LYMPHOCYTES # (AUTO) 1.7 /CMM (0.8-4.8); LYMPHOCYTES % (AUTO) 16.5 % (20.0-44.0); MEAN CORPUSCULAR HEMOGLOBIN 30 PG (26.0-33.0); MEAN CORPUSCULAR HGB CONC 35 g/dl (31.0-36.0); MEAN CORPUSCULAR VOLUME 87 fL (82-100); MONOCYTES # (AUTO) 0.5 /CMM (0.1-1.30); MONOCYTES % (AUTO) 5.4 % (2.0-12.0); NEUTROPHILS # (AUTO) 7.8 /CMM (1.8-8.9); NEUTROPHILS % (AUTO) 77.5 % (43.0-81.0); PLATELET COUNT (AUTO) 311 /CMM (150-450); RDW COEFFICIENT OF VARIATION 12.7 (11.5-15.0); RED BLOOD CELL COUNT(AUTO) 4.25 MIL/uL (4.0-5.2)
[2017-03-23 11:52] LABS: WBC,URINE 81-100 /HPF (0-3)
[2017-03-23 11:53] LABS: BACTERIA,URINE Many /HPF (None Seen); SQUAMOUS EPITHELIAL CELL,UR Few /HPF (None Seen)
[2017-03-23 11:54] LABS: CALCIUM, SERUM 9.4 mg/dL (8.5-10.1); CREATININE 0.8 mg/dL (0.6-1.3); POTASSIUM 4.7 mmol/L (3.5-5.1)
== END | disposition home or self-care (01) ==
LOC: ER 10:50
DX: N39.0 Urinary tract infection, site not specified (principal); E11.65 Type 2 diabetes mellitus with hyperglycemia; I10 Essential (primary) hypertension; Z79.84 Long term (current) use of oral hypoglycemic drugs
CPT/HCPCS: 36415; 80048; 81001; 82962; 85025; 87077; 87086; 87186; 99284; A4606; Z7610; 81000-TC

== ENCOUNTER 2017-04-29 16:13 | Emergency (ER) | payer SELFPAY ==
[~2017-04-29] VITALS: Ht 165.1 cm; Wt 72.1 kg
[2017-04-29 16:13] VITALS: BP 174/81
[2017-04-29 16:53] LABS: APPEARANCE,URINE CLOUDY (CLEAR); BILIRUBIN,URINE NEGATIVE (NEGATIVE); BLOOD, URINE NEGATIVE Ery/uL (NEGATIVE); COLOR,URINE YELLOW (YELLOW); KETONES,URINE NEGATIVE (NEGATIVE); LEUKOCYTE ESTERASE ,URINE TRACE (NEGATIVE); NITRITE, URINE NEGATIVE (NEGATIVE); PROTEIN,URINE NEGATIVE (NEGATIVE); UGLUCOSE 3+ mg/dL (NEGATIVE); UROBILINOGEN,URINE 0.2 EU/dL (0.2)
[2017-04-29 17:15] LABS: BACTERIA,URINE Few /HPF (None Seen); RBC,URINE 0-2 /HPF (0-2)
[2017-04-29 17:16] LABS: SQUAMOUS EPITHELIAL CELL,UR Moderate /HPF (None Seen)
== END 2017-04-29 17:15 | disposition home or self-care (01) ==
LOC: ER 16:14
DX: N39.0 Urinary tract infection, site not specified (principal); Z76.0 Encounter for issue of repeat prescription; E11.9 Type 2 diabetes mellitus without complications; F10.10 Alcohol abuse, uncomplicated; I10 Essential (primary) hypertension; Z79.84 Long term (current) use of oral hypoglycemic drugs
CPT/HCPCS: 81001; 84703; 87086; 99284; A4606; Z7610; 81000-TC